=== PATIENT | female | born 1970 | race Hispanic/Latino ===

== ENCOUNTER 2017-10-14 22:23 | Emergency (ER) | payer OTHER ==
[~2017-10-14] VITALS: Ht 152.4 cm; Wt 94.3 kg
[~2017-10-14 22:23] MED LIST: MEDROL DOSEPAK1 PAC PO
--- NOTE | 2017-10-15 01:15 | ED NECK/BACK PAIN COMPLAINT ---
History of Present Illness General Chief Complaint: Low Back Pain/Injury Stated Complaint: LWR BACK PAIN Source: patient Exam Limitations: no limitations Vital Signs & Intake/Output Vital Signs & Intake/Output Vital Signs Date Time Temp Pulse Resp B/P B/P Pulse O2 O2 Flow FiO2 Mean Ox Delivery Rate 10/15 0101 Room Air 10/14 2229 97.6 84 18 129/87 97 Room Air ED Intake and Output 10/15 0000 10/14 1200 Intake Total Output Total Balance Patient 208 lb Weight Weight Reported by Patient Measurement Method Allergies Coded Allergies: morphine (Intermediate, RASH 10/15/17) tramadol (Intermediate, RASH 10/15/17) Reconcile Medications Cyclobenzaprine HCl 10 MG TABLET 1 TAB PO 4 TIMES/DAY PRN MUSCLE SPASM Ibuprofen 800 MG TABLET 1 TAB PO TID PRN pain Methylprednisolone. (Medrol) 1 PAC PAC 1 TAB PO AD SWELLING Oxycodone HCl/Acetaminophen (Percocet 5-325 MG Tablet) 5 MG-325 MG TABLET 1 TAB PO 4XDP PRN PAIN eight...[id number] Triage Note: PT TO TRIAGE C/O LOWER BACK PAIN ALL DAY S/P WALKING ALOT YESTERDAY. PT HAD BACK SURGERY IN 2006. PT TOOK OXYCODONE TODAY AND VOMITED X1 S/P MEDICATION. DENIES ANY URINARY S/SX. Triage Nurses Notes Reviewed? yes Onset: Gradual Duration: day(s): Timing: recent history Quality/Severity: moderate Location: lumbar spine Radiation: none Context: "I was walking a lot yesterday" Method of Injury: unknown Loss of Consciousness: no loss of consciousness Modifying Factors: movement, rest Associated Symptoms: muscle spasm HPI: 47 yo woman h/o back surgery presents with lumbar back pain x 1 day. She shares that she was walking a [employer] yesterday. Today, she felt lumbar pain. "The pain was so bad it made me vomit." At 11:30am, she took an oxycodone tablet with moderate relief. She notes no radiation, fever, chills, dysuria. She is otherwise well. Past History Travel History Traveled to [place] past 21 day No Medical History Any Pertinent Medical History? see below for history Neurological: NONE EENT: NONE Cardiovascular: NONE Respiratory: SLEEP APNEA Gastrointestinal: NONE Hepatic: NONE Renal: NONE Musculoskeletal: RHEUMATOID ARTHRITIS Psychiatric: NONE Endocrine: NONE Blood Disorders: anemia Cancer(s): NONE [employer]/Reproductive: NONE Influenza Vaccine: 03/15/08 Surgical History Surgical History: back surgery Psychosocial History Who do you live with Family Services at Home None What is your primary language Slovenian Tobacco Use: Never used ETOH Use: denies use Family History Hx Contributory? No Review of Systems Review of Systems Constitutional: Reports: no symptoms. Eyes: Reports: no symptoms. Ears, Nose, Throat, Mouth: Reports: no symptoms. Respiratory: Reports: no symptoms. Cardiovascular: Reports: no symptoms. Gastrointestinal/Abdominal: Reports: no symptoms. Musculoskeletal: Reports: no symptoms. Skin: Reports: no symptoms. Neurological/Psychological: Reports: no symptoms. All Other Systems: Reviewed and Negative Physical Exam Physical Exam General Appearance: well developed/nourished, mild distress Head: atraumatic Eyes: Bilateral: PERRL, EOMI. Ears, Nose, Throat, Mouth: hearing grossly normal Neck: normal inspection, supple, full range of motion, normal alignment Respiratory: normal breath sounds Cardiovascular: regular rate/rhythm Gastrointestinal: soft, non-tender Back: normal inspection Extremities: normal range of motion Neurologic/Psych: awake, alert, oriented x 3, normal mood/affect Skin: intact, normal color, warm/dry Comments: light touch, dtr's, strength intact in bilateral lower extremities Core Measures CVA/TIA Diagnosis: No Progress Differential Diagnosis: herniated disc, myofascial strain, sciatica Plan of Care: Current Medications Sig/Kelvin Start time Last Medication Dose Stop Time Status Admin Cyclobenzaprine HCl 10 MG ONCE ONE 10/15 129 UNVr (Flexeril 10MG Tab) 10/15 130 Ketorolac 60 MG ONCE ONE 10/15 129 UNVr Tromethamine 10/15 130 (Toradol) Oxycodone/ 2 TAB ONCE ONE 10/15 114 UNVr Acetaminophen 10/16 115 (Percocet) Departure Departure Disposition: HOME OR SELF CARE Condition: Stable Clinical Impression Primary Impression: Back pain Secondary Impressions: Muscle spasm Referrals: Hina Parham APRN (PCP/Family) Departure Forms: Customer Survey General Discharge Information Prescriptions: Current Visit Scripts Ibuprofen 1 TAB PO TID PRN pain #30 TAB Cyclobenzaprine HCl 1 TAB PO 4 TIMES/DAY PRN MUSCLE SPASM #30 TAB Ref 1 Oxycodone HCl/Acetaminophen (Percocet 5-325 MG Tablet) 1 TAB PO 4XDP PRN PAIN #8 TAB eight...[id number] Comments 10/15/17, 1:39am... pt with lumbar pain, without warning signs... safe for discharge with close follow up advised.
[2017-10-15] MEDS ORDERED: IBUPROFEN800 M1 PO (01:18)
[2017-10-15] MEDS ORDERED: PERCOCET 5-3251 EACH PO ×2 (01:18→01:20)
[2017-10-15] MEDS ORDERED: CYCLOBENZAPRINE10 M1 PO (01:18)
[2017-10-15 01:55] VITALS: BP 113/69
[2017-10-16] MEDS ORDERED: PREDNISONE10 M2 PO (01:08)
[2017-10-16] MEDS ORDERED: DILAUDID2 M1 PO (01:08)
== END 2017-10-15 01:57 ==
LOC: ERH 22:23
DX: M54.5 Low back pain (principal); M62.830 Muscle spasm of back
CPT/HCPCS: 96372; J1885; J3101